=== PATIENT | male | born 1940 | race Asian ===

== ENCOUNTER 2021-01-18 18:04 | Emergency (ER) | payer OTHER ==
[~2021-01-18] VITALS: Ht 160 cm; Wt 63.5 kg
[2021-01-18 18:10] VITALS: BP 172/97
[2021-01-18] MEDS ORDERED: ACET-2605 PO (18:23)
[2021-01-18] MEDS ORDERED: ACETAMINOPHEN 325 MG TABLET ONE (18:28)
[2021-01-18] MEDS ORDERED: ACETAMINOPHEN 325 MG TABLET PO ONE (18:30)
--- NOTE | 2021-01-18 19:00 | NUR ---
Patient discharged to home in stable condition. Written and verbal after care instructions given. Patient verbalizes understanding of instruction. Pt ambulatory with a steady gait. Pt picked up by his .
== END 2021-01-18 19:32 | disposition home or self-care (01) ==
LOC: ER 18:06
DX: M25.561 Pain in right knee (principal); M25.562 Pain in left knee; I10 Essential (primary) hypertension; E11.9 Type 2 diabetes mellitus without complications; V49.49XA Driver injured in collision with other motor vehicles in traffic accident, initial encounter; Y93.89 Activity, other specified; Y92.413 State road as the place of occurrence of the external cause; Y99.8 Other external cause status